=== PATIENT | female | born 1980 | race Caucasian/White ===

== ENCOUNTER 2024-11-24 17:12 | Emergency (ER) | payer OTHER ==
[~2024-11-24] VITALS: Ht 162.6 cm; Wt 131.0 kg
--- NOTE | 2024-11-24 17:29 | ED.PDOC ---
History of Present Illness HPI Comments 44 y/o F, with PMHx of migraines presents to the ED for CC of vision issue. Patient states, that she has been experiencing double vision x3days. Patient reports, chronic migraines in association with symptoms. Patient relays, that she talked to her medical office professional instructor and was relayed to the ED for a further evaluation of symptoms. No other symptoms or modifying factors present at this time. Patient has a follow up appointment with her dermatology physician in two days. Patient was mildly hypertensive on arrival. 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: Unknown Family History Family History: Unknown Social History Smoker: Non-Smoker Alcohol: Denies ETOH Use Drugs: Denies Drug Use Lives In: Home Constitutional: denies: chills, diaphoresis, fatigue, fever, malaise, sweats, weakness, others EENTM: reports: double vision; denies: blurred vision, ear bleeding, ear discharge, ear drainage, ear pain, ear ringing, eye pain, eye redness, hearing loss, mouth pain, mouth swelling, nasal discharge, nose bleeding, nose congestion, nose pain, photophobia, tearing, throat pain, throat swelling, voice changes, others Respiratory: denies: cough, hemoptysis, orthopnea, SOB at rest, shortness of breath, SOB with excertion, stridor, wheezing, others Cardiovascular: denies: chest pain, dizzy spells, diaphoresis, Dyspnea on exertion, edema, irregular heart beat, left arm pain, lightheadedness, palpitations, PND, syncope, others Gastrointestinal: denies: abdomen distended, abdominal pain, blood streaked bowels, constipated, diarrhea, dysphagia, difficulty swallowing, hematemesis, melena, nausea, poor appetite, poor fluid intake, rectal bleeding, rectal pain, vomiting, others Genitourinary: denies: abnormal vagina bleeding, burning, dyspareunia, dysuria, flank pain, frequency, hematuria, incontinence, pain, , vagina discharge, urgency, others Neurological: denies: dizziness, fainting, headache, left sided numbness, left sided weakness, numbness, paresthesia, pre-existing deficit, right sided num bness, right sided weakness, seizure, speech problems, tingling, tremors, weakness, others Musculoskeletal: denies: back pain, gout, joint pain, joint swelling, muscle pain, muscle stiffness, neck pain, others Integumetry: denies: bruises, change in color, change in hair/nails, dryness, laceration, lesions, lumps, rash, wounds, others Allergic/Immunocompromised: denies: Difficulty Healing, Frequent Infections, Hives, Itching, others Hematologic/Lymphatic: denies: anemia, blood clots, easy bleeding, easy bruising, swollen glands, others Endocrine: denies: excessive hunger, excessive sweating, excessive thirst, excessive urination, flushing, intolerance to cold, intolerance to heat, unexplained weight gain, unexplained weight loss, others Psychiatric: denies: anxiety, bipolar disorder, depression, hopeless, panic disorder, schizophrenia, sleepless, suicidal, others All Other Systems: Reviewed and Negative Physical Exam General Appearance: Mild Distress (Due to double vision concerns. Patient was wearing a left-sided eye patch at time of evaluation.), Normal HEENT: Normal ENT Inspection, Pharynx Normal, TMs Normal, Other (Unremarkable evaluation of bilateral globes. No drusen or AV nicking appreciated on a rudimentary intraorbital exam. PERRLA. EOMI.) Neck: Full Range of Motion, Non-Tender, Normal, Normal Inspection Respiratory: Chest Non-Tender, Lungs Clear, No Accessory Muscle Use, No Respiratory Distress, Normal Breath Sounds Cardiovascular: No Edema, No JVD, No Murmur, No Gallop, Normal Peripheral Pulses, Regular Rate/Rhythm Breast Exam: Deferred Gastrointestinal: No Organomegaly, Non Tender, No Pulsatile Mass, Normal Bowel Sounds, Soft Genitalia: Deferred Pelvic: Deferred Rectal: Deferred Extremities: No calf tenderness, Normal capillary refill, Normal inspection, Normal range of motion, Non-tender, No pedal edema Neurologic: Alert, No Motor Deficits, Normal Affect, Normal Mood, No Sensory Deficits Cerebellar Function: NOT DONE Reflexes: NOT DONE Skin: Dry, Normal Color, Warm Lymphatic: No Adenopathy Was a procedure done? Was a procedure done?: No Differential Dx Considerations may include: Double vision, intra global mass, intracranial mass, astigmatism X-Ray, Labs, Meds, VS Vital Signs Date Time Temp Pulse Resp B/P (MAP) Pulse Ox O2 Delivery O2 Flow Rate FiO2 11/24/24 17:28 99.1 83 16 149/90 (109) 97 99.1 X-Ray, Labs, Meds, VS Comment All studies performed the ED were evaluated by me personally. Imaging studies of globes and cranial evaluation were unremarkable for any mass formation or signs of intracranial or intraorbital trauma. Advised patient maintain follow up appointment with dermatology physician for continued evaluation of double vision concerns. Time of 1ST Reevaluation: 18:37 Reevaluation 1ST: Unchanged Consultation: PCP, Other (Ophthalmology) Patient Education/Counseling: Diagnosis, Treatment Family Education/Counseling: Diagnosis, Treatment, No Family Present Departure 1 Departure Time of Disposition: 18:38 Impression: Primary Impression: Double vision Disposition: 01 HOME / SELF CARE / HOMELESS Condition: Stable Additional Instructions: Advised patient to maintain follow up appointment with Ophthalmology for evaluation of double vision concerns. Discharged With: Self, Friend Critical Care Note Critical Care Time?: No Stability Stability form required: No Heart Score Heart Score: Heart Score Response (Comments) Value History N/A 0 EKG N/A 0 Age N/A 0 Risk Factors N/A 0 Troponin N/A 0 Total 0 I personally scribed for UMER PERKINS PAC ([email or web address]) on 11/24/24 at 17:29. Electronically submitted by Christal Flores ([email or web address]). UMER PERKINS PAC November 24, 2024 17:29
--- NOTE | 2024-11-24 18:04 | DVH ---
EXAM: CT HEAD WITHOUT CONTRAST INDICATION: Double vision/left-sided head pain TECHNIQUE: CT of the head without intravenous contrast. Radiation Dose Information: CT Dose: CTDI volume is 66.97 mGy. Dose-length product is 1776.39 mGy*cm The dose indicators for CT are the volume Computed Tomography (CT) Dose Index (CTDIvol) and the Dose Length Product (DLP), and are measured in units of mGy and mGy-cm, respectively. These indicators are not patient dose, but values generated from the CT scanner acquisition factors. The report includes radiation exposure data for exposures received during this examination. COMPARISON: None FINDINGS: There is no evidence of acute intracranial hemorrhage, extra-axial collection, mass effect, midline s hift, herniation or hydrocephalus. The ventricles, sulci and cisterns are age appropriate. The pfeiffer-white differentiation is intact. Patchy periventricular and subcortical white matter hypoattenuation is nonspecific but may be related to small vessel ischemic disease. The visualized paranasal sinuses and mastoid air cells are clear. The surrounding soft tissues and osseous structures are unremarkable. IMPRESSION: 1. No acute intracranial abnormality. HS:Y
--- NOTE | 2024-11-24 18:28 | DVH ---
EXAM: CT ORBITS WO CONTRAST INDICATION: Left-sided head pain/double vision EXAM DATE: 11/24/2024 05:34 PM COMPARISON: None TECHNIQUE: Multiple axial CT images of the orbits were obtained using bone algorithm. Axial and coron al reformatting was done. Bone and soft tissue windows were reviewed. Radiation Dose Information: CT Dose: CTDI volume is 66.97 mGy. Dose-length product is 1776.39 mGy*cm Findings: The facial bones show no evidence of fracture, dislocation, mass, or destruction. The orbital structures, paranasal sinuses and visualized portions of the mastoid air cells are unrema rkable. The visualized intracranial regions demonstrate no abnormality. The maxillofacial soft tissues are unremarkable with no evidence of radiopaque foreign bodies seen. Impression: 1. No acute osseous or soft tissue abnormalities.
[2024-11-24 18:46] VITALS: BP 142/87; PULSE 84; RESP 17; TEMP 98.7; O2SAT 97
== END 2024-11-24 18:49 | disposition home or self-care (01) ==
LOC: ER 17:15
DX: H53.2 Diplopia (principal); G43.909 Migraine, unspecified, not intractable, without status migrainosus; I10 Essential (primary) hypertension
CPT/HCPCS: 70450; 70480